=== PATIENT | female | born 1945 | race Caucasian/White ===

== ENCOUNTER → 2016-09-15 | Outpatient (CLI) | payer MEDICARE | END | disposition home or self-care (01) | LOC: PCVCCLINIC 15:33 | PROVIDERS: ATTEND Internal Medicine Cardiovascular Disease | DX: I48.91 Unspecified atrial fibrillation (principal); E78.5 Hyperlipidemia, unspecified; I10 Essential (primary) hypertension; I26.99 Other pulmonary embolism without acute cor pulmonale; R00.1 Bradycardia, unspecified | CPT/HCPCS: 80061; 93005; G0463 ==

== ENCOUNTER → 2016-12-16 | Outpatient (CLI) | payer MEDICARE | END | disposition home or self-care (01) | LOC: PCVCCLINIC 10:30 | PROVIDERS: ATTEND Internal Medicine Cardiovascular Disease | DX: I48.2 Chronic atrial fibrillation (principal); I25.10 Atherosclerotic heart disease of native coronary artery without angina pectoris; I51.7 Cardiomegaly; M19.90 Unspecified osteoarthritis, unspecified site; I10 Essential (primary) hypertension; E78.5 Hyperlipidemia, unspecified; E03.9 Hypothyroidism, unspecified; E78.00 Pure hypercholesterolemia, unspecified; Z90.710 Acquired absence of both cervix and uterus; Z96.651 Presence of right artificial knee joint; Z79.899 Other long term (current) drug therapy; Z88.8 Allergy status to other drugs, medicaments and biological substances; Z88.2 Allergy status to sulfonamides | CPT/HCPCS: G0463 ==

== ENCOUNTER → 2017-03-17 | Outpatient (CLI) | payer MEDICARE ==
[~2017-03-17] MED LIST: AMINOPHYLLINE 250 MG/10 ML VIAL. ONE; REGADENOSON 0.4 MG/5 ML DISP.SYRIN. IV ONE
--- NOTE | 2017-03-17 14:41 | PCVCIMAG ---
APPROVED REPORT Exam: Nuclear Stress Test Indication: CAD , Chest pain, Atrial Fibrillation Patient Location: Out-Patient Stress Nurse: Pat Park RN, MIKEY Molina Tech:[facility] ELIZAB[facility] Solorzano Ht: 5 ft 2 in Wt: 155 lbs BSA: 1.72 m2 HR: 71 bpm BP: 153/85 mmHg BMI: 28.3 Medical History Medical History: Hyperlipidemia, HTN, CAD, Age, Afib, Recurrent PE Medications: Atenolol, Lanoxin, Xarelto, Crestor Allergies: Many -see electronic chart Pretest Chest Pain Characteristics: No chest pain Exercise History: Sedentary Physical Disabilities: Legs Meds Held (24 hrs): Atenolol NM EXAM: Myocardial Perfusion REST/STRESS Imaging Protocol: Rest Tc-99m/Stress Tc-99m 1 day Resting Data Rest SPECT myocardial perfusion imaging was performed in supine position 45 minutes following the intravenous injection of 10.9 mCi of Tc-99m Sestamibi. Time of rest injection: 0900 Date: 03/17/2017 Administration Route: IV Administration Site: Left AC Pharmacologic Stress Pharmacologic stress test was performed by injecting Regadenoson 0.4 mg IV push followed by the intravenous injection of 31.3 mCi of Tc-99m Sestamibi. Time of stress injection: 1000 Date: 03/17/2017 Administration Route: IV Administration Site: Left AC Gated Stress SPECT was performed 45 minutes after stress injection. The images were gated to evaluate regional wall motion and calculate left ventricular ejection fraction. Comments PRIOR STUDY 02/2015: Perfusion Imaging: No evidence of stress induced ischemia or prior myocardial infarction. Normal left ventricular size and function with no regional wall motion abnormalities. Study Quality Study: Good Study Data Post stress, the left ventricular ejection was 93%.. SSS: 2 SRS: 0 SDS: 2 TID = 0.88. Perfusion No evidence of stress induced ischemia or prior myocardial infarction. Wall Motion Normal left ventricular size and function with no regional wall motion abnormalities. Nuclear Conclusion No evidence of stress induced ischemia or prior myocardial infarction. Normal left ventricular size and function with no regional wall motion abnormalities. Post stress, the left ventricular ejection was 93%.. No change since prior study dated February 2015. Interpreted by: Ignacio Bradford MD Electronically Approved: 03/17/2017 13:34:48 Stress Test Details Stress Test: Pharmacologic stress testing performed using 0.4 mg of regadenoson per 5 mL given IV over 10 seconds. Reason for pharmacologic stress test: physical limitation. Reversal agent Aminophyline 100 mg, given intravenously for nausea. HR Resting HR: 71 bpmMax Heart Rate (APMHR): 147 bpm Max HR Achieved: 122 bpmTarget HR (85% APMHR): 124 bpm % of APMHR: 82 Recovery HR: 100 bpm BP Resting BP: 153/85 mmHg Max BP: 178/85 mmHg ECG Resting ECG: Atrial Fibrillation Stress ECG: Atrial Fibrillation Arrhythmia: None Recovery ECG: Atrial Fibrillation Clinical Reason for Termination: Completed protocol Stress Symptoms: Abdominal discomfort, Nausea Exercise duration: 0 min 55 sec Symptoms resolved during recovery with caffeine and aminophylline. Stress ECG Conclusion ECG: Non-ischemic <Conclusion> ECG: Non-ischemic
== END | disposition home or self-care (01) ==
LOC: PCVCIMAG 08:29
PROVIDERS: ATTEND Internal Medicine Cardiovascular Disease
DX: I25.10 Atherosclerotic heart disease of native coronary artery without angina pectoris (principal); I10 Essential (primary) hypertension; I48.91 Unspecified atrial fibrillation; R07.9 Chest pain, unspecified
CPT/HCPCS: 78452; 93017; A9500; J0280; J2785

== ENCOUNTER → 2017-06-08 | Outpatient (CLI) | payer MEDICARE | END | disposition home or self-care (01) | LOC: PCVCIMAG 12:16 | DX: I48.2 Chronic atrial fibrillation (principal); R60.9 Edema, unspecified; I10 Essential (primary) hypertension; R06.00 Dyspnea, unspecified; D66 Hereditary factor VIII deficiency; R94.31 Abnormal electrocardiogram [ECG] [EKG]; I26.99 Other pulmonary embolism without acute cor pulmonale; Z86.718 Personal history of other venous thrombosis and embolism; Z79.899 Other long term (current) drug therapy | CPT/HCPCS: 80061; 93005; 93306; G0463 ==

== ENCOUNTER → 2017-12-14 | Outpatient (CLI) | payer MEDICARE | END | disposition home or self-care (01) | LOC: PCVCCLINIC 12:51 | DX: I48.2 Chronic atrial fibrillation (principal); D68.1 Hereditary factor XI deficiency; I10 Essential (primary) hypertension; E78.00 Pure hypercholesterolemia, unspecified; R06.02 Shortness of breath; Z86.718 Personal history of other venous thrombosis and embolism; Z79.899 Other long term (current) drug therapy | CPT/HCPCS: 80061; 93005; G0463 ==

== ENCOUNTER → 2018-07-05 | Outpatient (CLI) | payer MEDICARE ==
--- NOTE | 2018-07-05 10:51 | PCVCIMAG ---
APPROVED REPORT Study performed: 07/05/2018 10:02:02 EXAM: Comprehensive 2D, Doppler, and color-flow Echocardiogram Patient Location: Echo lab Status: routine BSA: 1.78 HR: 75 bpmBP: 158/92 mmHg Rhythm: Atrial Fibrillation Other Information Study Quality: Adequate Risk Factors: Cardiac Risk Factors: HTN Indications Pre-Op Atrial Fibrillation 2D Dimensions IVSd: 13.48 (7-11mm) LVDd: 34.41 mm PWd: 13.32 (7-11mm)Ascending Ao: 33.34 (22-36mm) LVDs: 25.48 (25-40mm) Left Atrium: 45.67 (27-40mm) Aortic Root: 28.98 mm LV Single Plane 4CH: 52.00 % LV Single Plane 2CH: 64.15 % Biplane EF: 58.2 % Volumes Left Atrial Volume (Systole) Single Plane 4CH: 84.40 mLSingle Plane 2CH: 83.06 mL LA ESV Index: 48.00 mL/m2 Aortic Valve AoV Peak Santos.: 1.41 m/s AO Peak Gr.: 7.98 mmHgLVOT Max P.65 mmHg LVOT Max V: 0.79 m/s Pulmonary Valve PV Peak Santos.: 0.83 m/sPV Peak Gr.: 2.78 mmHg Tricuspid Valve TR Peak Santos.: 2.74 m/s TR Peak Gr.: 30.40 mmHg Left Ventricle The left ventricle is normal size. There is normal LV segmental wall motion. Mild concentric left ventricular hypertrophy. Left ventricular systolic function is normal. The left ventricular ejection fraction is within the normal range. LVEF is 55-60%. This study is not technically sufficient to allow evaluation of the LV diastolic function due to atrial fibrillation. Right Ventricle The right ventricle is normal size. The right ventricular systolic function is normal. Atria Left atrium is moderately dilated. Right atrium is moderately dilated. Aortic Valve The aortic valve is normal in structure. Trace aortic regurgitation. There is no aortic valvular stenosis. Mitral Valve The mitral valve is normal in structure. Mild mitral regurgitation. No evidence of mitral valve stenosis. Tricuspid Valve The tricuspid valve is normal in structure. Mild tricuspid regurgitation with PAP of 37 mmHg. Pulmonic Valve The pulmonary valve is normal in structure. Mild pulmonic regurgitation. Great Vessels The aortic root is normal in size. IVC is normal in size and collapses >50% with inspiration. Pericardium There is no pericardial effusion. There is no pleural effusion. <Conclusion> Mild concentric left ventricular hypertrophy. LVEF is 55-60%. LVEF is 55-60%. This study is not technically sufficient to allow evaluation of the LV diastolic function due to atrial fibrillation. Left atrium is moderately dilated. Right atrium is moderately dilated. Trace aortic regurgitation. There is no aortic valvular stenosis. Mild mitral regurgitation. Mild tricuspid regurgitation with PAP of 37 mmHg. The aortic root is normal in size. There is no pericardial effusion.
== END | disposition home or self-care (01) ==
LOC: PCVCIMAG 10:08
PROVIDERS: ATTEND Internal Medicine Cardiovascular Disease
DX: Z01.818 Encounter for other preprocedural examination (principal); I08.1 Rheumatic disorders of both mitral and tricuspid valves; I25.10 Atherosclerotic heart disease of native coronary artery without angina pectoris; I48.2 Chronic atrial fibrillation; D68.1 Hereditary factor XI deficiency; E78.00 Pure hypercholesterolemia, unspecified; I10 Essential (primary) hypertension; I82.409 Acute embolism and thrombosis of unspecified deep veins of unspecified lower extremity; I26.09 Other pulmonary embolism with acute cor pulmonale; E78.5 Hyperlipidemia, unspecified; E03.9 Hypothyroidism, unspecified; R06.02 Shortness of breath; Z79.899 Other long term (current) drug therapy
CPT/HCPCS: 36415; 80061; 93005; 93306; G0463

== ENCOUNTER → 2018-07-13 | Outpatient (CLI) | payer MEDICARE ==
[~2018-07-13] MED LIST changes: -AMINOPHYLLINE 250 MG/10 ML VIAL. ONE
--- NOTE | 2018-07-17 10:19 | PCVCIMAG ---
APPROVED REPORT Imaging Protocol: Rest Tc-99m/Stress Tc-99m 1 day Study performed: 07/13/2018 10:03:44 Indication: Pre-Operative CV evaluation, CAD Patient Location: Out-Patient Stress Nurse: Arabella Garcia RN, Pat Park RN [place] Tech:[facility] Ht: 5 ft 1 in Wt: 170 lbs BSA: 1.76 m2 HR: 76 bpm BP: 175/87 mmHg BMI: 32.1 Rhythm: Atrial Fibrillation Medical History Medical History: HTN, Hyperlipidemia, CVD, Atrial Fibrillation Medications: Atenolol, Crestor, Avapro Allergies: Many - none relavant to this test Cardiac Risk Factors: Age, FHX of CAD Pretest Chest Pain Characteristics: No chest pain Exercise History: Sedentary Meds Held (24 hrs): Atenolol Resting Data Rest SPECT myocardial perfusion imaging was performed in supine position 45 minutes following the intravenous injection of 11.7 mCi of Tc-99m Sestamibi. Time of rest injection: 0945 Date: 07/13/2018 Administration Route: IV Administration Site: Left Arm Pharmacologic Stress Pharmacologic stress test was performed by injecting Regadenoson 0.4 mg IV push over 10-15 seconds immediately followed by the intravenous injection of 31.6 mCi of Tc-99m Sestamibi. Time of stress injection: 5 Date: 07/13/2018 Administration Route: IV Administration Site: Left Arm Gated Stress SPECT was performed 45 minutes after stress injection. The images were gated to evaluate regional wall motion and calculate left ventricular ejection fraction. Stress Test Details Stress Test: Pharmacologic stress testing performed using 0.4 mg of regadenoson per 5 mL given IV over 10 seconds. Reason for pharmacologic stress test: knee issues. HRMax Heart Rate (APMHR): 146 bpm Resting HR: 76 bpmTarget HR (85% APMHR): 124 bpm Max HR Achieved: 131 bpm % of APMHR: 89 Recovery HR: 106 bpm BP Resting BP: 175/87 mmHg Max BP: 199/75 mmHg Recovery BP: 183/90 mmHg ECG Resting ECG: Atrial Fibrillation Stress ECG: Atrial Fibrillation Arrhythmia: VPC's, Atrial fibrillation Recovery ECG: Atrial Fibrillation Clinical Reason for Termination: Completed protocol Stress Symptoms: Abdominal discomfort, Dyspnea, Lightheaded Exercise duration: 0 min 55 sec Symptoms resolved with caffeine. Stress ECG Conclusion ECG: Non-ischemic Study Quality Study: Good Study Data Post stress, the left ventricular ejection was 67%.. SSS: 0 SRS: 0 SDS: 0 TID = 1.05. Perfusion No evidence of stress induced ischemia or prior myocardial infarction. Wall Motion Normal left ventricular size and function with no regional wall motion abnormalities. Nuclear Conclusion No evidence of stress induced ischemia or prior myocardial infarction. Normal left ventricular size and function with no regional wall motion abnormalities. Post stress, the left ventricular ejection was 67%. No change since prior study dated March 2017. Interpreted by: Ignacio Bradford MD Electronically Approved: 07/13/2018 19:17:54 <Conclusion> ECG: Non-ischemic
== END | disposition home or self-care (01) ==
LOC: PCVCIMAG 09:20
PROVIDERS: ATTEND Internal Medicine Cardiovascular Disease
DX: Z01.810 Encounter for preprocedural cardiovascular examination (principal); I25.10 Atherosclerotic heart disease of native coronary artery without angina pectoris; I48.2 Chronic atrial fibrillation
CPT/HCPCS: 78452; 93017; A9500; J2785

== ENCOUNTER → 2019-02-19 | Outpatient (CLI) | payer MEDICARE | END | disposition home or self-care (01) | LOC: PCVCCLINIC 13:00 | PROVIDERS: ATTEND Internal Medicine Cardiovascular Disease | DX: I48.21 Permanent atrial fibrillation (principal); E78.00 Pure hypercholesterolemia, unspecified; I10 Essential (primary) hypertension; I25.10 Atherosclerotic heart disease of native coronary artery without angina pectoris; I26.99 Other pulmonary embolism without acute cor pulmonale; D68.1 Hereditary factor XI deficiency; E78.5 Hyperlipidemia, unspecified; E03.9 Hypothyroidism, unspecified; M19.90 Unspecified osteoarthritis, unspecified site | CPT/HCPCS: 93005; G0463 ==